=== PATIENT | female | born 2000 | race Caucasian/White ===

== ENCOUNTER 2023-10-05 16:20 | Outpatient (OUT) | payer BC, SELFPAY ==
[2023-10-05 16:39] LABS: Bilirubin Urine NEGATIVE (NEGATIVE); Blood Urine NEGATIVE (NEGATIVE); Clarity Urine CLEAR (CLEAR); Color Urine LT. YELLOW (YELLOW); Glucose Urine UA NEGATIVE (NEGATIVE); Ketones Urine NEGATIVE (NEGATIVE); Leukocyte Esterase Urine TRACE (NEGATIVE); Nitrite Urine NEGATIVE (NEGATIVE); Protein Urine NEGATIVE (NEG/TRACE); Specific Gravity Urine <=1.005 (1.005-1.025); Urobilinogen Urine 0.2 EU/dL (0.2-1.0)
[2023-10-05 16:39] LABS: Basophils Percent Auto 0.5 % (0.2-2.0); Eosinophils Absolute Auto 0.1 10^3/uL (0.0-0.7); Eosinophils Percent Auto 0.8 % (0.9-7.0); Hematocrit 39.8 % (36.0-48.0); Hemoglobin 13.2 g/dL (12.0-16.0); Immature Granulocytes Abs Auto 0.02 10^3/uL (0.00-0.03); Immature Granulocytes Pct Auto 0.3 % (0.0-0.5); Lymphocytes Absolute Auto 2.6 10^3/uL (1.2-3.8); Lymphocytes Percent Auto 34.3 % (20.5-60.0); Mean Corpuscular HGB Conc 33.2 g/dL (29.9-35.2); Mean Corpuscular Hemoglobin 30.1 pg (26.7-34.0); Mean Corpuscular Volume 90.9 fL (81.0-99.0); Mean Platelet Volume 9.1 fL (9.5-13.5); Monocytes Absolute Auto 0.7 10^3/uL (0.3-0.8); Monocytes Percent Auto 8.9 % (1.7-12.0); Neutrophils Absolute Auto 4.2 10^3/uL (1.4-6.5); Neutrophils Percent Auto 55.2 % (43.0-75.0); Platelet Count 256 10^3/uL (150-450); Red Blood Count 4.38 10^6/uL (4.20-5.40); Red Cell Distribution Width 12.2 % (11.0-15.0); White Blood Count 7.7 10^3/uL (4.0-11.0)
[2023-10-05 17:15] LABS: Amphetamine Screen Urine NEGATIVE (NEGATIVE); Barbiturates Screen Urine NEGATIVE (NEGATIVE); Benzodiazepines Screen Urine NEGATIVE (NEGATIVE); Buprenorphine Screen Urine NEGATIVE (NEGATIVE); Cannabinoid Screen Urine NEGATIVE (NEGATIVE); Cocaine Screen Urine NEGATIVE (NEGATIVE); Methadone Screen Urine NEGATIVE (NEGATIVE); Methamphetamines Screen Urine NEGATIVE (NEGATIVE); Opiate Screen Urine NEGATIVE (NEGATIVE); Oxycodone Screen Urine NEGATIVE (NEGATIVE); Phencyclidine Screen Urine NEGATIVE (NEGATIVE); Tricyclic Antidepressant Urine NEGATIVE (NEGATIVE)
[2023-10-07 06:16] LABS: Rubella Antibodies, IgG 4.46 index (Immune >0.99)
== END 2023-10-05 16:21 | disposition home or self-care (01) ==
PROVIDERS: PCP Family Medicine; Visit Provider Family Medicine
DX: Z00.00 Encounter for general adult medical examination without abnormal findings (principal)
CPT/HCPCS: 36415; 80307; 81003; 85025; 86762